=== PATIENT | male | born 1995 | race Caucasian/White ===

== ENCOUNTER 2016-09-28 09:53 | Emergency (ER) | payer SELFPAY ==
[~2016-09-28] VITALS: Ht 172.7 cm; Wt 87.6 kg
[2016-09-28 11:05] VITALS: BP 125/88
== END 2016-09-28 11:05 | disposition home or self-care (01) ==
LOC: ED 09:53
DX: H57.8 Other specified disorders of eye and adnexa (principal)

== ENCOUNTER 2017-06-15 08:16 | Emergency (ER) | payer MEDICAID ==
[~2017-06-15] VITALS: Ht 172.7 cm; Wt 85.7 kg
[2017-06-15 08:25] VITALS: Ht 172.7 cm; Wt 85.7 kg
[2017-06-15 09:11] LABS: BASOPHIL % 0.8 % (0-2); PLATELET COUNT 263 x10^3mcL (130-400); RED CELL DISTRIBUTION WIDTH 13.8 % (11.5-14.5)
[2017-06-15 09:19] LABS: CALCIUM 8.7 mg/dL (8.5-10.1); CARBON DIOXIDE 27.2 mmol/L (21-32); CHLORIDE SERUM 102 mmol/L (98-107); CREATININE SERUM 1.1 mg/dL (0.7-1.3); GFR1 > 60 mL/min; GLUCOSE SERUM 101 mg/dL (74-106); SODIUM SERUM 138 mmol/L (136-145)
[2017-06-15 09:25] LABS: ALBUMIN 3.9 g/dL (3.4-5.0); ALKALINE PHOSPHATASE 70 U/L (46-116); ALT/SGPT 27 U/L (16-63); AST/SGOT 20 U/L (15-37); BILIRUBIN TOTAL 0.44 mg/dL (0.20-1.00); LIPASE 132 IU/L (73-393); TOTAL PROTEIN, SERUM 7.9 g/dL (6.4-8.2)
[2017-06-15 10:17] VITALS: BP 134/78
== END 2017-06-15 10:23 | disposition home or self-care (01) ==
LOC: ED 08:16
PROVIDERS: Emergency Medicine
DX: R10.13 Epigastric pain (principal); R11.10 Vomiting, unspecified
CPT/HCPCS: J1885; Q0162

== ENCOUNTER 2020-04-17 10:08 | Emergency (ER) | payer MEDICAID ==
[~2020-04-17] VITALS: Ht 177.8 cm; Wt 89.8 kg
[2020-04-17 10:49] VITALS: BP 131/86; Ht 177.8 cm; Wt 89.8 kg
== END 2020-04-17 15:34 | disposition home or self-care (01) ==
LOC: ED 10:08
DX: F41.9 Anxiety disorder, unspecified (principal); H52.209 Unspecified astigmatism, unspecified eye